=== PATIENT | female | born 1965 | race African-American/Black ===

== ENCOUNTER → 2016-06-21 | Outpatient (CLI) | payer OTHER ==
--- NOTE | 2016-06-21 14:02 | XR ---
EXAMINATION TYPE: XR chest 2V DATE OF EXAM: 06/21/2016 11:39 AM COMPARISON: 09/01/2014 HISTORY: 51-year-old female cough and headache, shortness of breath, congestion for 3 weeks. TECHNIQUE: Frontal and lateral views FINDINGS: The cardiomediastinal silhouette, aorta, and pulmonary vasculature are within normal limits. There is some strandy atelectasis in the lower lungs. Otherwise, lungs and pleural spaces are clear. IMPRESSION: No acute cardiopulmonary process.
== END | disposition home or self-care (01) ==
LOC: RADXRMAIN 10:55
PROVIDERS: ATTEND Physician Assistant Medical
DX: G44.83 Primary cough headache (principal)
CPT/HCPCS: 71020

== ENCOUNTER → 2016-08-27 | Outpatient (CLI) | payer OTHER ==
--- NOTE | 2016-08-27 12:12 | US ---
EXAMINATION TYPE: US transvaginal DATE OF EXAM: 08/27/2016 11:47 AM COMPARISON: NONE CLINICAL HISTORY: N95.0 Postmenopausal Bleeding. Symptoms x 1 month; prior endometrial ablation 7 ye ars ago; C Section x 1 TECHNIQUE: Transvaginal (TV) Date of LMP: NA with endometrial ablation EXAM MEASUREMENTS: Uterus: 5.5 x 3.6 x 2.5 cm Endometrial Stripe: right endometrial stripe = 0.2cm and left endometrial stripe = 0.1cm Right Ovary: 1.5 x 1.0 x 1.0 cm Left Ovary: 1.6 x 1.2 x 1.0m TECHNOLOGIST IMPRESSION: wnl 1. 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 2. 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 Right Ovary: simple cyst = 1.1 x 0.8 x 0.7cm 4. Left Ovary: small follicles 5. Bilateral Adnexa: wnl 6. Posterior cul-de-sac: wnl There is 9 mm oval heterogeneous hypoechoic lesion suspect small fibroid in the uterine fundus myomet rium. There is bicornuate type appearance of the uterus suspected. No suspicious endometrial thickeni ng is identified. No free fluid is seen in pelvic cul-de-sac. Within right ovary there is 1.1 cm simple small ovarian cyst noted. No concerning adnexal masses are identified. IMPRESSION: Probable 9 mm intramural fibroid. No suspicious endometrial thickening of arcuate or bico rnuate type uterus.
== END ==
LOC: RADUSWWP 11:12
PROVIDERS: ATTEND Obstetrics & Gynecology
DX: N95.0 Postmenopausal bleeding (principal)
CPT/HCPCS: 76830

== ENCOUNTER → 2017-02-26 | Outpatient (CLI) | payer OTHER ==
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
== END | disposition home or self-care (01) ==
LOC: RADMRIMAIN 06:03
PROVIDERS: ATTEND Psychiatry & Neurology Pain Medicine
DX: M99.73 Connective tissue and disc stenosis of intervertebral foramina of lumbar region (principal); M51.36 Other intervertebral disc degeneration, lumbar region; R93.7 Abnormal findings on diagnostic imaging of other parts of musculoskeletal system; Z88.5 Allergy status to narcotic agent; Z88.6 Allergy status to analgesic agent
CPT/HCPCS: 72148

== ENCOUNTER → 2017-03-04 | Outpatient (CLI) | payer OTHER ==
[2017-03-04 11:40] LABS: Basophils # (A) 0.1 k/uL (0-0.2); Basophils % (A) 1 %; CH 31.3; CHCM 31.4; Eosinophils # (A) 0.5 k/uL (0-0.7); Eosinophils % (A) 6 %; HCT 40.3 % (34.0-46.0); HGB 12.8 gm/dL (11.4-16.0); Luc # (Auto) 0.22; Luc % (Auto) 3; Lymphocytes # (A) 2.8 k/uL (1.0-4.8); Lymphocytes % (A) 35 %; MCH 31.8 pg (25.0-35.0); MCHC 31.8 g/dL (31.0-37.0); MCV 100.1 fL (80.0-100.0); Mean Platelet Volume 6.9; Monocytes # (A) 0.4 k/uL (0-1.0); Monocytes % (A) 5 %; Neutrophils # (A) 4.1 k/uL (1.3-7.7); Neutrophils % (A) 50 %; RBC 4.03 m/uL (3.80-5.40); RDW 13.2 % (11.5-15.5); WBC 8.1 k/uL (3.8-10.6); WBC (Perox) 7.99
== END | disposition home or self-care (01) ==
LOC: LABWHC1 10:52
PROVIDERS: ATTEND Physical Medicine & Rehabilitation
DX: R93.7 Abnormal findings on diagnostic imaging of other parts of musculoskeletal system (principal)
CPT/HCPCS: 36415; 85025

== ENCOUNTER → 2017-10-21 | Outpatient (CLI) | payer OTHER ==
--- NOTE | 2017-10-21 07:59 | MR ---
EXAMINATION TYPE: MR cervical spine wo con DATE OF EXAM: 10/21/2017 COMPARISON: NONE HISTORY: Neck pain, headaches, lt arm numbness TECHNIQUE: Multiplanar, multisequence images of the cervical spine were acquired. FINDINGS: Vertebral body heights and alignment are maintained of the cervical spine. Bone marrow signal is with in normal limits. Visualized portions of the posterior fossa are grossly unremarkable. Spinal cord si gnal is within normal limits of the visualized cervical spine. Paravertebral muscles are unremarkable without atrophy. C2-C3: There is a small right paracentral disc osteophyte complex without significant neural foramina l narrowing or spinal canal stenosis. Minimal uncovertebral hypertrophy is also seen at this level. C3-C4: There is mild facet arthropathy and uncovertebral hypertrophy creating mild left neural forami nal narrowing. Small central disc bulge slightly narrows the ventral subarachnoid space without impre ssion upon the ventral spinal cord or alteration of signal. This results in minimal spinal canal sten osis. C4-C5: There is a right paracentral small disc herniation narrowing the ventral subarachnoid space wi thout effacement creating minimal spinal canal stenosis. Minimal uncovertebral hypertrophy and facet arthropathy are seen without significant neural foraminal narrowing. C5-C6: There is a large broad-based disc bulge, facet arthropathy, and uncovertebral hypertrophy mode rately narrowing the left neural foramen and minimally narrowing the ventral subarachnoid space creat ing minimal spinal canal stenosis. Right neuroforamen is patent. C6-C7: There is a broad-based disc osteophyte complex, slightly left eccentric, that examination with uncovertebral hypertrophy and facet arthropathy creating moderate left neural foraminal narrowing. R ight neuroforamen is patent. No significant spinal canal stenosis. C7-T1: No evidence for degenerative disc disease. No disc bulge/herniation or protrusion. No Canal stenosis. Foramina are patent bilaterally. IMPRESSION: 1. Small right paracentral disc herniation at C4-C5 creating minimal spinal canal stenosis but withou t neural foraminal narrowing. 2. Multilevel moderate degenerative disc disease resulting in minimal spinal canal stenosis at C3-C4, C4-C5, and C5-C6. Variable degrees of neural foraminal narrowing are described above. The most signi ficant neural foraminal narrowing is seen on the left at C5-C6 and C6-C7 (moderate in degree).
== END | disposition home or self-care (01) ==
LOC: RADMRIMAIN 06:57
PROVIDERS: ATTEND Psychiatry & Neurology Neurology
DX: M99.71 Connective tissue and disc stenosis of intervertebral foramina of cervical region (principal); M48.02 Spinal stenosis, cervical region; M50.31 Other cervical disc degeneration, high cervical region; Z88.6 Allergy status to analgesic agent; Z88.8 Allergy status to other drugs, medicaments and biological substances
CPT/HCPCS: 72141

== ENCOUNTER → 2018-01-28 | Outpatient (CLI) | payer OTHER ==
[2018-01-28 08:41] LABS: Basophils % (A) 0 %; Eosinophils # (A) 0.1 k/uL (0-0.7); Eosinophils % (A) 0 %; HCT 43.4 % (34.0-46.0); HGB 13.2 gm/dL (11.4-16.0); Lymphocytes # (A) 1.9 k/uL (1.0-4.8); Lymphocytes % (A) 12 %; MCH 29.9 pg (25.0-35.0); MCHC 30.5 g/dL (31.0-37.0); MCV 98.2 fL (80.0-100.0); Mean Platelet Volume 6.9; Monocytes # (A) 0.3 k/uL (0-1.0); Monocytes % (A) 2 %; Neutrophils # (A) 13.3 k/uL (1.3-7.7); Neutrophils % (A) 85 %; Platelet Count 448 k/uL (150-450); RBC 4.42 m/uL (3.80-5.40); RDW 13.5 % (11.5-15.5); WBC 15.7 k/uL (3.8-10.6)
== END | disposition home or self-care (01) ==
LOC: LABWHC1 07:55
PROVIDERS: ATTEND Nurse Practitioner
DX: Z00.01 Encounter for general adult medical examination with abnormal findings (principal); M25.561 Pain in right knee
CPT/HCPCS: 36415; 85025

== ENCOUNTER → 2018-03-19 | Outpatient (CLI) | payer OTHER | END | disposition home or self-care (01) | LOC: LABWHC1 07:02 | PROVIDERS: ATTEND Nurse Practitioner | DX: M25.551 Pain in right hip (principal) | CPT/HCPCS: 36415; 83655 ==

== ENCOUNTER → 2019-01-26 | Outpatient (CLI) | payer OTHER ==
[2019-01-26 12:50] LABS: Basophils # (A) 0.2 k/uL (0-0.2); Basophils % (A) 2 %; Eosinophils # (A) 0.4 k/uL (0-0.7); Eosinophils % (A) 5 %; HCT 40.8 % (34.0-46.0); HGB 13.3 gm/dL (11.4-16.0); Lymphocytes % (A) 34 %; MCH 31.6 pg (25.0-35.0); MCHC 32.6 g/dL (31.0-37.0); Mean Platelet Volume 7.2; Monocytes # (A) 0.4 k/uL (0-1.0); Monocytes % (A) 4 %; Neutrophils # (A) 4.6 k/uL (1.3-7.7); Neutrophils % (A) 53 %; Platelet Count 414 k/uL (150-450); RBC 4.21 m/uL (3.80-5.40); WBC 8.7 k/uL (3.8-10.6)
== END | disposition home or self-care (01) ==
LOC: LABWHC1 11:41
PROVIDERS: ATTEND Surgery
DX: Z01.812 Encounter for preprocedural laboratory examination (principal); K43.2 Incisional hernia without obstruction or gangrene
CPT/HCPCS: 36415; 85025; 93005

== ENCOUNTER 2019-02-10 05:45 | Observation (INO) | payer OTHER ==
[~2019-02-10 05:45] MED LIST: HEPARIN SODIUM,PORCINE 5,000 UNIT/ML 1 ML VIAL SQ ONE; HYDROmorphone 0.5 MG/0.5 ML SYRINGE IVP PRN; ONDANSETRON 4 MG/2 ML VIAL IVP PRN
[2019-02-10] MEDS ORDERED: LIDOCAINE 1% 20 ML VIAL (10MG/ML) FOR IV START INTRADERMA ONE (06:39)
[2019-02-10] MEDS: LACTATED RINGERS 1,000 ML IV SCH ×3 (06:39→11:20)
[2019-02-10] MEDS ORDERED: DEXAMETHASONE SOD PHOSPHATE 10 MG/ML 1 ML VIAL IV ONE (06:50)
[2019-02-10] MEDS ORDERED: ATENOLOL 25 MG TAB PO STA (07:09)
[2019-02-10] MEDS ORDERED: MIDAZOLAM (PF) 2 MG/2 ML VIAL IV ONE ×2 (07:20→07:25)
[2019-02-10] MEDS: fentaNYL (PF) 50 MCG/ML 2 ML AMP IV ONE ×4 (07:20→09:41)
--- NOTE | 2019-02-10 07:37 | P.ANPRN ---
Procedure Note - Anesthesia - Nerve Block Performed Bilateral Transversus Abdominis Single Time Out Performed: Yes Date of Procedure: 02/10/19 Procedure Start Time: : Procedure Stop Time: : Location of Patient Procedure: PreOp Indication: Acute Post-Operative Pain, Requested by Surgeon Sedation Type: Sedate with meaningful contact maintained Preparation: Sterile Prep Position: Supine Catheter: None Needle Types: Pajunk Needle Gauge: 21 Ultrasound used to visualize needle placement: Yes Ultrasound used to observe medication spread: Yes Injectate: 0.5% Ropivacaine (see comment for volume) (30cc + dexamethasone 4mg (split equally b/w both sides)) Blood Aspirated: No Pain Paresthesia on Injection Noted: No Resistance on Injection: Normal Image Stored and Saved: Yes Events: Uneventful and Well Tolerated
[2019-02-10] MEDS ORDERED: PROPOFOL 10 MG/ML 20 ML VIAL IV ONE (07:41)
[2019-02-10] MEDS ORDERED: NEOSTIGMINE 1 MG/ML 10 ML VIAL ONE (07:41)
[2019-02-10] MEDS ORDERED: MIDAZOLAM 2 MG/2 ML VIAL ONE (07:41)
[2019-02-10] MEDS ORDERED: LABETALOL 5 MG/ML VIAL MDV ONE (07:41)
[2019-02-10] MEDS ORDERED: GLYCOPYRROLATE 0.2 MG/ML 2 ML VIAL ONE (07:41)
[2019-02-10] MEDS ORDERED: ROCURONIUM BROMIDE 10 MG/ML 10 ML VIAL IV ONE (07:41)
[2019-02-10] MEDS ORDERED: fentaNYL (PF) 50 MCG/ML 2 ML AMP ONE (07:41)
[2019-02-10] MEDS ORDERED: DEXAMETHASONE SOD PHOSPHATE 4 MG/ML 1 ML VIAL ONE (07:41)
[2019-02-10] MEDS ORDERED: PHENYLEPHRINE-0.9% NACL SYG 1 MG/10 ML SYRINGE ONE (07:41)
[2019-02-10] MEDS ORDERED: ROPIVACAINE 5 MG/ML 30 ML VIAL ONE (07:41)
[2019-02-10] MEDS ORDERED: ALBUTEROL INHALER 60 PUFF/8 GM INHALER INHALATION ONE (07:41)
--- NOTE | 2019-02-10 07:48 | P.GSHP ---
History of Present Illness H&P Date: 02/10/19 Chief Complaint: Incisional hernia This a 53-year-old female who presents today for laparoscopic robotic repair of incisional hernia. Patient has developed an incisional hernia near her umbilicus. Past Medical History Past Medical History: Hyperlipidemia, Hypertension History of Any Multi-Drug Resistant Organisms: None Reported Past Surgical History: Orthopedic Surgery Additional Past Surgical History / Comment(s): breast,bilateral hips, uterine ablation Past Anesthesia/Blood Transfusion Reactions: No Reported Reaction Past Drug Use History: None Reported - Past Family History Sister(s) Family Medical History: Cancer, Deep Vein Thrombosis (DVT), Pulmonary Embolus Additional Family Medical History / Comment(s): 1-lung, breast. 2 blood cancer. 3- cancer Medications and Allergies Home Medications Medication Instructions Recorded Confirmed Type Albuterol Inhaler [Ventolin Hfa 1 - 2 puff INHALATION RT-Q6H PRN 01/29/19 02/10/19 History Inhaler] Atenolol [Tenormin] 25 mg PO DAILY 01/29/19 02/10/19 History Cholecalciferol [Vitamin D3 (25 2,000 unit PO DAILY 01/29/19 02/10/19 History Mcg = 1000 Iu)] Furosemide [Lasix] 20 mg PO DAILY 01/29/19 02/10/19 History Gabapentin [Neurontin] 400 mg PO TID 01/29/19 02/10/19 History HYDROcodone/APAP 10-325MG [[place] 1 tab PO Q8H PRN 01/29/19 02/10/19 History 10-325] Loratadine [Claritin] 10 mg PO DAILY 01/29/19 02/10/19 History Meloxicam 15 mg PO DAILY 01/29/19 02/10/19 History Methocarbamol [Robaxin] 500 mg PO TID 01/29/19 02/10/19 History Mirtazapine [Remeron] 30 mg PO HS 01/29/19 02/10/19 History Montelukast [Singulair] 10 mg PO DAILY 01/29/19 02/10/19 History Pravastatin Sodium [Pravachol] 40 mg PO DAILY 01/29/19 02/10/19 History Prazosin [Minipress] 1 mg PO HS 01/29/19 02/10/19 History QUEtiapine FUMARATE [SEROquel] 300 mg PO HS 01/29/19 02/10/19 History Sertraline [Zoloft] 200 mg PO DAILY 01/29/19 02/10/19 History amLODIPine [Norvasc] 5 mg PO DAILY 01/29/19 02/10/19 History busPIRone HCL [Buspar] 30 mg PO BID 01/29/19 02/10/19 History Allergies Allergy/AdvReac Type Severity Reaction Status Date / Time aspirin AdvReac Anaphylaxis Verified 02/10/19 06:17 ibuprofen AdvReac Cough Verified 02/10/19 06:17 propoxyphene napsylate AdvReac Anaphylaxis Verified 02/10/19 06:17 [From Yissel-N] Surgical - Exam Vital Signs Temp Pulse Resp BP Pulse Ox 98.1 F 67 16 113/73 97 02/10/19 06:14 02/10/19 06:14 02/10/19 06:14 02/10/19 06:14 02/10/19 06:14 - General well developed, well nourished, no distress - Eyes PERRL - ENT normal pinna - Neck no masses - Respiratory normal expansion - Cardiovascular Rhythm: regular - Abdomen Abdomen: soft, non tender Hernia: incisional (3 cm incision hernia) Assessment and Plan Assessment: Incisional hernia. We'll perform laparoscopic robotic-assisted repair.
[2019-02-10] MEDS ORDERED: BUPIVACAIN-EPI 0.25%-1:200,000 30 ML VIAL SQ ONE (08:08)
[2019-02-10] MEDS ORDERED: LACTATED RINGERS 1,000 ML IV ONE ×2 (08:12→09:27)
[2019-02-10] MEDS ORDERED: traMADol 50 MG TAB PO PRN (09:27)
[2019-02-10] MEDS ORDERED: NALOXONE 0.4 MG/ML 1 ML VIAL IV PRN (09:27)
[2019-02-10] MEDS ORDERED: ONDANSETRON 4 MG/2 ML VIAL IVP PRN (09:27)
--- NOTE | 2019-02-10 09:30 | P.OP ---
Date of Procedure: 02/10/19 Preoperative Diagnosis: Incisional hernia Postoperative Diagnosis: Incisional hernia Procedure(s) Performed: Laparoscopic robotic-assisted repair of incisional hernia Partial omentectomy Anesthesia: ELSA Surgeon: Nelson Ruelas Estimated Blood Loss (ml): 5 Pathology: other (Omentum) Description of Procedure: The patient was placed on the operating table in the supine position. He received general anesthesia. His abdomen was prepped and draped usual fashion. Using a 5 mm optical trocar under direct visualization the peritoneal cavity was entered in the left upper quadrant. The abdomen was then insufflated. The laparoscope was placed back into the perineal cavity. Next a 8 mm robotic trocar was placed in the left lower quadrant and a 12 mm robotic trocar was placed in the left lateral position. The original 5 mm trocar was exchanged for a 8 mm robotic trocar. The patient's placed in the left side up position. And the patient was docked to the robot. The incisional hernia was visualized. Using hook cautery the peritoneum over the incisional hernia was excised. The incarcerated omentum was dissected free and sent to pathology. The fascial opening was repaired using 0V LOC suture. Next a piece of 11 cm round ventral light ST mesh was placed into the. Cavity and secured with 2 OV lock suture. The patient was undocked the robot. The needles were retrieved. The fascia of the 12 mm trocar site was closed with 0 Ethibond suture. Skin was closed interrupted 3-0 Monocryl suture. Dermabond dressings was applied. Patient tolerated procedure well and was sent to recovery room stable condition.
[2019-02-10] MEDS ORDERED: SODIUM CHLORIDE 0.9% 1,000 ML IV ONE ×2 (09:49)
[2019-02-10] MEDS: MEPERIDINE 50 MG/ML SYRINGE IVP ONE ×2 (10:03→10:14)
[2019-02-10 10:40] VITALS: BMI 35.5
--- NOTE | 2019-02-10 11:57 | P.CONS ---
History of Present Illness - History of Present Illness This is a pleasant 53 years old female with past medical history of hyperlipi demia, hypertension, she was admitted by the surgical team for elective laparoscopic repair of her incisional hernia. She is postop day #0. Patient Bed comfortable. She denies chest pain or dyspnea. No abdominal pain. No other complaints. Vitas looks stable. She is on Lovenox for DVT prophylaxis and she got antibiotics prior to surgery. Currently on Ringer lactate at 20 L/h. And she is on symptomatic treatment. Patient was in significant pain at the surgical site and she could not contribute much to the history. However she confirmed to me or her home medications. Review of Systems CONSTITUTIONAL: No fever, no malaise, no fatigue. HEENT: No recent visual problems or hearing problems. Denied any sore throat. CARDIOVASCULAR: No orthopnea, PND, no palpitations, no syncope. PULMONARY: No shortness of breath, no cough, no hemoptysis. GASTROINTESTINAL: No diarrhea, no nausea, no vomiting, no abdominal pain. Normoactive bowel sounds. NEUROLOGICAL: No headaches, no weakness, no numbness. HEMATOLOGICAL: Denies any bleeding or petechiae. GENITOURINARY: Denies any burning micturition, frequency, or urgency. MUSCULOSKELETAL/RHEUMATOLOGICAL: Denies any joint pain, swelling, or any muscle pain. ENDOCRINE: Denies any polyuria or polydipsia. Past Medical History Past Medical History: Hyperlipidemia, Hypertension History of Any Multi-Drug Resistant Organisms: None Reported Past Surgical History: Orthopedic Surgery Additional Past Surgical History / Comment(s): breast,bilateral hips, uterine ablation Past Anesthesia/Blood Transfusion Reactions: No Reported Reaction Past Psychological History: Depression Smoking Status: Current every day smoker Past Alcohol Use History: None Reported Additional Past Alcohol Use History / Comment(s): smoker for 20 years 1/2ppd Past Drug Use History: None Reported - Past Family History Sister(s) Family Medical History: Cancer, Deep Vein Thrombosis (DVT), Pulmonary Embolus Additional Family Medical History / Comment(s): 1-lung, breast. 2 blood cancer. 3- cancer Medications and Allergies Home Medications Medication Instructions Recorded Confirmed Type Albuterol Inhaler [Ventolin Hfa 1 - 2 puff INHALATION RT-Q6H PRN 01/29/19 02/10/19 History Inhaler] Atenolol [Tenormin] 25 mg PO DAILY 01/29/19 02/10/19 History Cholecalciferol [Vitamin D3 (25 2,000 unit PO DAILY 01/29/19 02/10/19 History Mcg = 1000 Iu)] Furosemide [Lasix] 20 mg PO DAILY 01/29/19 02/10/19 History Gabapentin [Neurontin] 400 mg PO TID 01/29/19 02/10/19 History HYDROcodone/APAP 10-325MG [[place] 1 tab PO Q8H PRN 01/29/19 02/10/19 History 10-325] Loratadine [Claritin] 10 mg PO DAILY 01/29/19 02/10/19 History Meloxicam 15 mg PO DAILY 01/29/19 02/10/19 History Methocarbamol [Robaxin] 500 mg PO TID 01/29/19 02/10/19 History Mirtazapine [Remeron] 30 mg PO HS 01/29/19 02/10/19 History Montelukast [Singulair] 10 mg PO DAILY 01/29/19 02/10/19 History Pravastatin Sodium [Pravachol] 40 mg PO DAILY 01/29/19 02/10/19 History Prazosin [Minipress] 1 mg PO HS 01/29/19 02/10/19 History QUEtiapine FUMARATE [SEROquel] 300 mg PO HS 01/29/19 02/10/19 History Sertraline [Zoloft] 200 mg PO DAILY 01/29/19 02/10/19 History amLODIPine [Norvasc] 5 mg PO DAILY 01/29/19 02/10/19 History busPIRone HCL [Buspar] 30 mg PO BID 01/29/19 02/10/19 History Allergies Allergy/AdvReac Type Severity Reaction Status Date / Time aspirin AdvReac Anaphylaxis Verified 02/10/19 06:17 ibuprofen AdvReac Cough Verified 02/10/19 06:17 propoxyphene napsylate AdvReac Anaphylaxis Verified 02/10/19 06:17 [From Mohit] Physical Exam Vitals: Vital Signs Temp Pulse Pulse Resp BP BP Pulse Ox 02/10/19 09:58 65 16 152/85 93 L 02/10/19 09:44 66 18 148/80 95 02/10/19 09:29 65 18 147/83 94 L 02/10/19 09:14 98 F 71 20 133/80 93 L 02/10/19 07:30 119/67 99 02/10/19 06:14 98.1 F 67 16 113/73 97 Intake and Output 02/09/19 02/10/19 02/10/19 22:59 06:59 14:59 Intake Total 750 1600 Output Total 10 Balance 750 1590 Intake: IV 750 1600 Output: Estimated Blood Loss 10 Other: # Voids 1 GENERAL: The patient is alert and oriented x3, not in any acute distress. Well developed, well nourished. HEENT: Pupils are round and equally reacting to light. EOMI. No scleral icterus. No conjunctival pallor. Normocephalic, atraumatic. No pharyngeal erythema. No thyromegaly. CARDIOVASCULAR: S1 and S2 present. No murmurs, rubs, or gallops. PULMONARY: Chest is clear to auscultation, no wheezing or crackles. ABDOMEN: Soft, nontender, nondistended, normoactive bowel sounds. No palpable organomegaly. MUSCULOSKELETAL: No joint swelling or deformity. EXTREMITIES: No cyanosis, clubbing, or pedal edema. NEUROLOGICAL: Gross neurological examination did not reveal any focal deficits. SKIN: No rashes. Assessment and Plan Assessment: Status post laparoscopic repair of her incisional hernia Hyperlipidemia Hypertension History of depression/anxiety Plan: This is a pleasant 53 years old female who presented for elective incisional hernia repair. Continue with pain management.Labs and medication were reviewed.. Continue same treatment. Continue with symptomatic treatment. Resume home medication. Monitor lytes and vitals. DVT and GI prophylaxis. Further recommendations of the clinical course of the patient DVT prophylaxis: Subcutaneous Lovenox GI Prophylaxis: Pepcid Prognosis is guarded
[2019-02-10] MEDS: HYDROmorphone 0.5 MG/0.5 ML SYRINGE IVP PRN ×4 (12:18→20:58)
[2019-02-10] MEDS: METHOCARBAMOL 500 MG TAB PO SCH ×2 (15:20→20:57)
[2019-02-10] MEDS: GABAPENTIN 400 MG CAP PO SCH ×2 (15:20→20:56)
[2019-02-10] MEDS: busPIRone HCl 10 MG TAB PO SCH (20:56)
[2019-02-10] MEDS: FAMOTIDINE 20 MG/2 ML VIAL IV SCH (20:57)
[2019-02-10] MEDS ORDERED: MIRTAZAPINE 15 MG TAB PO SCH (21:00)
[2019-02-10] MEDS ORDERED: QUEtiapine 100 MG TAB PO SCH (21:00)
[2019-02-10] MEDS ORDERED: PRAZOSIN 1 MG CAP PO SCH (21:00)
[2019-02-11] MEDS: HYDROmorphone 0.5 MG/0.5 ML SYRINGE IVP PRN ×3 (00:36→10:00)
[2019-02-11 03:12] VITALS: RESP 16; TEMP 98.1
[2019-02-11] MEDS: LACTATED RINGERS 1,000 ML IV SCH (04:35)
[2019-02-11] MEDS: HYDROcodone/APAP 5-325MG 1 EACH TAB PO PRN ×2 (04:35→09:14)
[2019-02-11] MEDS: FAMOTIDINE 20 MG/2 ML VIAL IV SCH (07:04)
[2019-02-11 07:09] VITALS: BP 132/98; PULSE 66
[2019-02-11] MEDS: GABAPENTIN 400 MG CAP PO SCH (07:10)
[2019-02-11] MEDS: busPIRone HCl 10 MG TAB PO SCH (07:10)
[2019-02-11] MEDS: METHOCARBAMOL 500 MG TAB PO SCH (07:11)
[2019-02-11] MEDS ORDERED: CHOLECALCIFEROL 1,000 UNIT TAB PO SCH (09:00)
[2019-02-11] MEDS ORDERED: amLODIPine 5 MG TAB PO SCH (09:00)
[2019-02-11] MEDS ORDERED: MONTELUKAST 10 MG TAB PO SCH (09:00)
[2019-02-11] MEDS ORDERED: SERTRALINE 100 MG TAB PO SCH (09:00)
[2019-02-11] MEDS ORDERED: ENOXAPARIN 40 MG/0.4 ML SYRINGE SQ SCH (09:00)
[2019-02-11] MEDS ORDERED: ATENOLOL 25 MG TAB PO SCH (09:00)
[2019-02-11] MEDS ORDERED: PRAVASTATIN SODIUM 40 MG TAB PO SCH (09:00)
[2019-02-11] MEDS ORDERED: FUROSEMIDE 20 MG TAB PO SCH (09:00)
--- NOTE | 2019-02-11 11:00 | P.PN ---
Subjective This is a pleasant 53 years old female with past medical history of hyperlipidemia, hypertension, she was admitted by the surgical team for elective laparoscopic repair of her incisional hernia. She is postop day #0. Patient Bed comfortable. She denies chest pain or dyspnea. No abdominal pain. No other complaints. Vitas looks stable. She is on Lovenox for DVT prophylaxis and she got antibiotics prior to surgery. Currently on Ringer lactate at 20 L/h. And she is on symptomatic treatment. Patient was in significant pain at the surgical site and she could not contribute much to the history. However she confirmed to me or her home medications. 02/11/2019 Patient still complains from abdominal pain at the surgical site which is exp ected however is much better compared to yesterday. On abdominal examination has no hernia she has small ones which are healing, she has tenderness in the abdomen around this area. She is getting out of bed to chair. Patient is tolerating diet, she is passing gas but no bowel movement. No nausea vomiting. Objective - Vital Signs Vital signs: Vital Signs Temp 98.1 F 02/10/19 20:25 Pulse 66 02/11/19 07:00 Resp 16 02/11/19 07:00 BP 132/98 02/11/19 07:00 Pulse Ox 95 02/10/19 20:25 Intake & Output 02/10/19 02/11/19 02/11/19 18:59 06:59 18:59 Intake Total 1780 440 Output Total 10 Balance 1770 440 Intake: IV 1600 Intake, IV Titration 240 Amount Lactated Ringers 1,000 ml 240 @ 20 mls/hr IV .Q24H [facility] Rx#:[id number] Oral 180 200 Output: Estimated Blood Loss 10 Other: Voiding Method Toilet Toilet # Voids 3 1 - Exam GENERAL: The patient is alert and oriented x3, not in any acute distress. Well developed, well nourished. HEENT: Pupils are round and equally reacting to light. EOMI. No scleral icterus. No conjunctival pallor. Normocephalic, atraumatic. No pharyngeal erythema. No thyromegaly. CARDIOVASCULAR: S1 and S2 present. No murmurs, rubs, or gallops. PULMONARY: Chest is clear to auscultation, no wheezing or crackles. -ABDOMEN: Soft, tenderness and abdominal around the surgical sites which is expected, normoactive bowel sounds. No palpable organomegaly. Laparoscopic site wounds are closed and healing. Dressing is in a Place. MUSCULOSKELETAL: No joint swelling or deformity. EXTREMITIES: No cyanosis, clubbing, or pedal edema. NEUROLOGICAL: Gross neurological examination did not reveal any focal deficits. SKIN: No rashes. Assessment and Plan Assessment: Status post laparoscopic repair of her incisional hernia Hyperlipidemia Hypertension History of depression/anxiety Plan: This is a pleasant 53 years old female who presented for elective incisional her layla repair. Continue with pain management.Labs and medication were reviewed.. Continue same treatment. Continue with symptomatic treatment. Resume home medication. Monitor lytes and vitals. DVT and GI prophylaxis. Further recommendations of the clinical course of the patient DVT prophylaxis: Subcutaneous Lovenox GI Prophylaxis: Pepcid Prognosis is guarded
--- NOTE | 2019-02-11 14:04 | P.DS ---
Providers Date of admission: 02/11/19 04:50 Expected date of discharge: 02/11/19 Attending physician: Nelson Ruelas Consults: 02/10/19 09:27 Consult Physician Routine Consulting Provider: James López Consult Reason/Comments: Medical management Do you want consulting provider notified?: Yes Primary care physician: Ligia [facility] Hospital Course: 53-year-old female who underwent laparoscopic robotic-assisted repair of incisional hernia. Patient is doing well postoperatively. Her pain is tolerable. Tolerating diet. Denies nausea or vomiting. Vital signs have been stable. She is stable for discharge home today. Please see EMR for further hospital course details. No narcotics were prescribed at the time of discharge as patient is prescribed Milam 10 mg on an outpatient basis. Discharge diagnosis 1. Incisional hernia, status post laparoscopic robotic-assisted repair Nurse practitioner note has been reviewed by physician. Signing provider agrees with the documented findings, assessment, and plan of care. Patient Condition at Discharge: Stable Plan - Discharge Summary Discharge Rx Participant: No New Discharge Prescriptions: No Action Montelukast [Singulair] 10 mg PO DAILY Meloxicam 15 mg PO DAILY Loratadine [Claritin] 10 mg PO DAILY Methocarbamol [Robaxin] 500 mg PO TID HYDROcodone/APAP 10-325MG [Mil[place] 10-325] 1 tab PO Q8H PRN PRN Reason: Pain Gabapentin [Neurontin] 400 mg PO TID Sertraline [Zoloft] 200 mg PO DAILY QUEtiapine FUMARATE [SEROquel] 300 mg PO HS Prazosin [Minipress] 1 mg PO HS Mirtazapine [Remeron] 30 mg PO HS Cholecalciferol [Vitamin D3 (25 Mcg = 1000 Iu)] 2,000 unit PO DAILY busPIRone HCL [Buspar] 30 mg PO BID Pravastatin Sodium [Pravachol] 40 mg PO DAILY Furosemide [Lasix] 20 mg PO DAILY Atenolol [Tenormin] 25 mg PO DAILY amLODIPine [Norvasc] 5 mg PO DAILY Albuterol Inhaler [Ventolin Hfa Inhaler] 1 - 2 puff INHALATION RT-Q6H PRN PRN Reason: Dyspnea Discharge Medication List Albuterol Inhaler [Ventolin Hfa Inhaler] 1 - 2 puff INHALATION RT-Q6H PRN 01/29/19 [History] Atenolol [Tenormin] 25 mg PO DAILY 01/29/19 [History] Cholecalciferol [Vitamin D3 (25 Mcg = 1000 Iu)] 2,000 unit PO DAILY 01/29/19 [History] Furosemide [Lasix] 20 mg PO DAILY 01/29/19 [History] Gabapentin [Neurontin] 400 mg PO TID 01/29/19 [History] HYDROcodone/APAP 10-325MG [[place] 10-325] 1 tab PO Q8H PRN 01/29/19 [History] Loratadine [Claritin] 10 mg PO DAILY 01/29/19 [History] Meloxicam 15 mg PO DAILY 01/29/19 [History] Methocarbamol [Robaxin] 500 mg PO TID 01/29/19 [History] Mirtazapine [Remeron] 30 mg PO HS 01/29/19 [History] Montelukast [Singulair] 10 mg PO DAILY 01/29/19 [History] Pravastatin Sodium [Pravachol] 40 mg PO DAILY 01/29/19 [History] Prazosin [Minipress] 1 mg PO HS 01/29/19 [History] QUEtiapine FUMARATE [SEROquel] 300 mg PO HS 01/29/19 [History] Sertraline [Zoloft] 200 mg PO DAILY 01/29/19 [History] amLODIPine [Norvasc] 5 mg PO DAILY 01/29/19 [History] busPIRone HCL [Buspar] 30 mg PO BID 01/29/19 [History] Follow up Appointment(s)/Referral(s): Ligia Ellison NPC [Primary Care Provider] - 1 Week (unable to contact [facility], please call back for a follow-up in 1 week) Nelson Ruelas MD [STAFF PHYSICIAN] - 02/19/19 2:40 pm Patient Instructions/Handouts: Incisional Hernia (DC) Activity/Diet/Wound Care/Special Instructions: No driving while taking Milam No lifting over 10 pounds You may shower. No soaking or tub baths Very light activity until you are reevaluated at your follow up appointment with your surgeon
== END 2019-02-11 13:35 ==
LOC: OR 05:45 → 4SSUR 09:05 → OR 02-11 04:50
PROVIDERS: ADMIT Surgery; ATTEND Surgery
DX: K43.2 Incisional hernia without obstruction or gangrene (principal); I10 Essential (primary) hypertension; E78.5 Hyperlipidemia, unspecified; F41.9 Anxiety disorder, unspecified; F32.9 Major depressive disorder, single episode, unspecified; J44.9 Chronic obstructive pulmonary disease, unspecified; F17.210 Nicotine dependence, cigarettes, uncomplicated; Z79.899 Other long term (current) drug therapy; Z79.1 Long term (current) use of non-steroidal anti-inflammatories (NSAID); Z88.6 Allergy status to analgesic agent; Z88.5 Allergy status to narcotic agent; Z88.8 Allergy status to other drugs, medicaments and biological substances; Z80.9 Family history of malignant neoplasm, unspecified; Z83.2 Family history of diseases of the blood and blood-forming organs and certain disorders involving the immune mechanism; Z80.7 Family history of other malignant neoplasms of lymphoid, hematopoietic and related tissues
CPT/HCPCS: 49655; S2900; 36415; 64488; 86850; 86900; 86901; 88305

== ENCOUNTER 2019-03-07 10:36 | Emergency (ER) | payer OTHER ==
[2019-03-07 10:42] VITALS: TEMP 97.8
[2019-03-07] MEDS ORDERED: MORPHINE SULFATE 4 MG/ML SYRINGE IVP STA ×2 (10:54→12:05)
--- NOTE | 2019-03-07 10:55 | ED ---
General Adult HPI - General Chief complaint: Abdominal Pain Stated complaint: POST OP PAIN, ABDOMINAL Time Seen by Provider: 03/07/19 10:44 Source: patient, RN notes reviewed Mode of arrival: ambulatory Limitations: no limitations - History of Present Illness Initial comments: Alberta is a 53-year-old female with a past medical history of hyperlipidemia hy pertension, and laparoscopic umbilical hernia surgery on 02/11/2019 presents for a chief complaint of abdominal pain. Patient states she has had left upper abdominal pain since her surgery. States this seems to be getting worse. States she did speak with Dr. Ruelas about this and has been taking Motrin for the pain. States it seems to be spreading. States pain is worse with movement and feels like a pressure. Denies any dysuria. Denies any fevers or chills. Denies any lower abdominal pain. Denies any pain over the incision repair site. Patient has no other complaints at this time including shortness of breath, chest pain, nausea or vomiting, headache, or visual changes. - Related Data Home Medications Medication Instructions Recorded Confirmed Albuterol Inhaler [Ventolin Hfa 1 - 2 puff INHALATION RT-Q6H PRN 01/29/19 03/07/19 Inhaler] Atenolol [Tenormin] 25 mg PO DAILY 01/29/19 03/07/19 Cholecalciferol [Vitamin D3 (25 2,000 unit PO DAILY 01/29/19 03/07/19 Mcg = 1000 Iu)] Furosemide [Lasix] 20 mg PO DAILY 01/29/19 03/07/19 Gabapentin [Neurontin] 400 mg PO TID 01/29/19 03/07/19 HYDROcodone/APAP 10-325MG [[place] 1 tab PO Q8H PRN 01/29/19 03/07/19 10-325] Loratadine [Claritin] 10 mg PO DAILY 01/29/19 03/07/19 Meloxicam 15 mg PO DAILY 01/29/19 03/07/19 Methocarbamol [Robaxin] 500 mg PO TID 01/29/19 03/07/19 Mirtazapine [Remeron] 30 mg PO HS 01/29/19 03/07/19 Montelukast [Singulair] 10 mg PO DAILY 01/29/19 03/07/19 Pravastatin Sodium [Pravachol] 40 mg PO DAILY 01/29/19 03/07/19 Prazosin [Minipress] 1 mg PO HS 01/29/19 03/07/19 QUEtiapine FUMARATE [SEROquel] 300 mg PO HS 01/29/19 03/07/19 Sertraline [Zoloft] 200 mg PO DAILY 01/29/19 03/07/19 amLODIPine [Norvasc] 5 mg PO DAILY 01/29/19 03/07/19 busPIRone HCL [Buspar] 30 mg PO BID 01/29/19 03/07/19 Allergies Allergy/AdvReac Type Severity Reaction Status Date / Time aspirin AdvReac Anaphylaxis Verified 03/07/19 10:51 ibuprofen AdvReac Cough Verified 03/07/19 10:51 propoxyphene napsylate AdvReac Anaphylaxis Verified 03/07/19 10:51 [From [facility]] Review of Systems ROS Statement: Those systems with pertinent positive or pertinent negative responses have been documented in the HPI. ROS Other: All systems not noted in ROS Statement are negative. Past Medical History Past Medical History: Hyperlipidemia, Hypertension History of Any Multi-Drug Resistant Organisms: None Reported Past Surgical History: Hernia Repair, Orthopedic Surgery Additional Past Surgical History / Comment(s): breast,bilateral hips, uterine ablation Past Psychological History: Depression Smoking Status: Current every day smoker Past Alcohol Use History: None Reported Past Drug Use History: Marijuana General Exam Limitations: no limitations General appearance: alert, in no apparent distress Head exam: Present: atraumatic, normocephalic, normal inspection Eye exam: Present: normal appearance, PERRL, EOMI. Absent: scleral icterus, conjunctival injection, periorbital swelling ENT exam: Present: normal exam, mucous membranes moist Neck exam: Present: normal inspection, full ROM. Absent: tenderness, meningismus Respiratory exam: Present: normal lung sounds bilaterally. Absent: respiratory distress, wheezes, rales, rhonchi, stridor Cardiovascular Exam: Present: regular rate, normal rhythm, normal heart sounds. Absent: systolic murmur, diastolic murmur, rubs, gallop, clicks GI/Abdominal exam: Present: soft, tenderness (Tenderness to the left upper quadrant. No lower abdominal tenderness or right upper quadrant tenderness.), normal bowel sounds. Absent: distended, guarding, rebound, rigid Neurological exam: Present: alert Psychiatric exam: Present: normal affect, normal mood Course Vital Signs 03/07/19 03/07/19 10:40 12:25 Temperature 97.8 F Pulse Rate 65 87 Respiratory 18 18 Rate Blood Pressure 123/78 122/74 O2 Sat by Pulse 99 Oximetry Medical Decision Making - Medical Decision Making 53-year-old female presents for left upper quadrant pain after laparoscopic umbilical hernia repair on 02/11/2019. States the pain has been evident since her surgery. States she saw her surgeon who recommended Motrin. States the pain is not resolving so she came to the emergency department. Denies nausea vomiting diarrhea. Denies fevers or chills. Denies any lower or right-sided abdominal pain. On exam patient does have tenderness to the left upper quadrant. No tenderness to the umbilical hernia site. Vitals are stable. CBC and CMP are unremarkable. Urine is negative for evidence of infection. CT abdomen and pelvis showed a. Umbilical hernia containing high density fluid which may represent blood. He does not wear patient's pain is and is likely normal finding for postop. Local hernia repair. There is also small right pleural effusion. Denies chest pain or shortness of breath. Uncomplicated diverticular change noted on CT. At this time patient was given pain medications and is feeling better. Recommended that she follow up with Dr. Ruelas as soon as possible. Recommended she return here if she has worsening symptoms. I discussed this case with attending Dr. Mccoy who agrees with this assessment and treatment plan. - Lab Data Result diagrams: 03/07/19 11:00 03/07/19 11:00 Lab Results 03/07/19 03/07/19 03/07/19 Range/Units 11:00 11:00 11:00 WBC 8.6 (3.8-10.6) k/uL RBC 4.23 (3.80-5.40) m/uL Hgb 13.4 (11.4-16.0) gm/dL Hct 39.2 (34.0-46.0) % MCV 92.6 (80.0-100.0) fL MCH 31.7 (25.0-35.0) pg MCHC 34.2 (31.0-37.0) g/dL RDW 13.1 (11.5-15.5) % Plt Count 405 (150-450) k/uL Neutrophils % 40 % Lymphocytes % 39 % Monocytes % 5 % Eosinophils % 11 % Basophils % 2 % Neutrophils # 3.5 (1.3-7.7) k/uL Lymphocytes # 3.4 (1.0-4.8) k/uL Monocytes # 0.4 (0-1.0) k/uL Eosinophils # 1.0 H (0-0.7) k/uL Basophils # 0.2 (0-0.2) k/uL Sodium 137 (137-145) mmol/L Potassium 5.0 (3.5-5.1) mmol/L Chloride 106 (98-107) mmol/L Carbon Dioxide 20 L (22-30) mmol/L Anion Gap 11 mmol/L BUN 15 (7-17) mg/dL Creatinine 0.76 (0.52-1.04) mg/dL Est GFR (CKD-EPI)AfAm >90 (>60 ml/min/1.73 sqM) Est GFR (CKD-EPI)NonAf 90 (>60 ml/min/1.73 sqM) Glucose 86 (74-99) mg/dL Calcium 10.2 (8.4-10.2) mg/dL Total Bilirubin 0.4 (0.2-1.3) mg/dL AST 22 (14-36) U/L ALT 10 (9-52) U/L Alkaline Phosphatase 93 (38-126) U/L Total Protein 7.6 (6.3-8.2) g/dL Albumin 4.2 (3.5-5.0) g/dL Amylase 57 (30-110) U/L Lipase 56 (23-300) U/L Urine Color Light Yellow Urine Appearance Clear (Clear) Urine pH 5.5 (5.0-8.0) Ur Specific [place] 1.005 (1.001-1.035) Urine Protein Negative (Negative) Urine Glucose (UA) Negative (Negative) Urine Ketones Negative (Negative) Urine Blood Negative (Negative) Urine Nitrite Negative (Negative) Urine Bilirubin Negative (Negative) Urine Urobilinogen <2.0 (<2.0) mg/dL Ur Leukocyte Esterase Negative (Negative) Disposition Clinical Impression: Abdominal pain Disposition: HOME SELF-CARE Condition: Good Instructions (If sedation given, give patient instructions): Abdominal Pain (ED) Additional Instructions: Please follow up with surgeon in 1-2 days. Please return here to the emergency department if you have any worsening symptoms. Is patient prescribed a controlled substance at d/c from ED?: No Referrals: [facility] [Primary Care Provider] - 1-2 days Nelson Ruelas MD [STAFF PHYSICIAN] - 1-2 days Time of Disposition: 13:02
[2019-03-07 11:50] LABS: Basophils # (A) 0.2 k/uL (0-0.2); Basophils % (A) 2 %; Eosinophils % (A) 11 %; HCT 39.2 % (34.0-46.0); HGB 13.4 gm/dL (11.4-16.0); Lymphocytes # (A) 3.4 k/uL (1.0-4.8); Lymphocytes % (A) 39 %; MCH 31.7 pg (25.0-35.0); MCHC 34.2 g/dL (31.0-37.0); MCV 92.6 fL (80.0-100.0); Mean Platelet Volume 6.1; Monocytes # (A) 0.4 k/uL (0-1.0); Monocytes % (A) 5 %; Neutrophils # (A) 3.5 k/uL (1.3-7.7); Neutrophils % (A) 40 %; Platelet Count 405 k/uL (150-450); RBC 4.23 m/uL (3.80-5.40); RDW 13.1 % (11.5-15.5); WBC 8.6 k/uL (3.8-10.6)
[2019-03-07 11:53] LABS: Appearance,Urine Clear (Clear); Bilirubin,Urine Negative (Negative); Blood,Urine Negative (Negative); Color,Urine Light Yellow; Glucose,Urine (UA) Negative (Negative); Ketones,Urine Negative (Negative); Leukocyte Esterase,Urine Negative (Negative); Nitrite,Urine Negative (Negative); PH, Urine 5.5 (5.0-8.0); Protein,Urine Negative (Negative); Specific Gravity,Urine 1.005 (1.001-1.035); Urobilinogen,Urine <2.0 mg/dL (<2.0)
[2019-03-07 11:57] LABS: ALT 10 U/L (9-52); AST 22 U/L (14-36); African American GFR (CKD) >90 (>60 ml/min/1.73 sqM); Albumin 4.2 g/dL (3.5-5.0); Alkaline Phosphatase 93 U/L (38-126); Amylase 57 U/L (30-110); Anion Gap 11 mmol/L; Blood Urea Nitrogen 15 mg/dL (7-17); Calcium 10.2 mg/dL (8.4-10.2); Carbon Dioxide 20 mmol/L (22-30); Chloride 106 mmol/L (98-107); Glucose 86 mg/dL (74-99); Sodium 137 mmol/L (137-145); Total Bilirubin 0.4 mg/dL (0.2-1.3); Total Protein 7.6 g/dL (6.3-8.2)
--- NOTE | 2019-03-07 12:34 | CT ---
EXAMINATION TYPE: CT abdomen pelvis w con DATE OF EXAM: 03/07/2019 REFERENCE: NONE HISTORY: abdominal pain LUQ, lap umb hernia repair 02/10 HISTORY: Post Op pain, LUQ CT DLP: 1286 mGy Automated exposure control for dose reduction was used. TECHNIQUE: Helical acquisition through the abdomen and pelvis was obtained following the oral ingesti on of without Oral Contrast and following intravenous administration of 100 mL of Isovue 300. The jarek a was reformatted in axial, coronal and sagittal projections. FINDINGS: There is a small right-sided pleural effusion. There is mild dependent atelectasis in the dependent portions of both lungs. The heart is minimally enlarged. There is no pericardial fluid iden tified. Within the abdomen, the liver, spleen and gallbladder are normal. Both adrenal glands are normal Both kidneys demonstrate function and appear morphologically normal. There are extrarenal pelves bila terally larger on the right than the left. Pancreas is unremarkable. There is no significant retroperitoneal, iliac or inguinal adenopathy. There are bilateral hip prostheses present. This is causing significant streak artifact within the pe lvis. Bladder is not well visualized. The uterus and ovaries are not well visualized. There are scattered diverticula in the sigmoid region without radiographic evidence of diverticulitis . The appendix is not visualized. Small bowel loops are normal. There is a periumbilical hernia containing some high density material which may represent blood. No free fluid and no free air is seen. No osseous lesion is seen. IMPRESSION: 1. PERIUMBILICAL HERNIA CONTAINING HIGH-DENSITY FLUID WHICH MAY REPRESENT BLOOD. 2. SMALL RIGHT PLEURAL EFFUSION. 3. UNCOMPLICATED DIVERTICULAR CHANGE INVOLVING THE SIGMOID COLON.
[2019-03-07 13:58] VITALS: BP 122/91; PULSE 68; RESP 16
== END 2019-03-07 13:58 | disposition home or self-care (01) ==
LOC: EC 10:36
DX: K57.30 Diverticulosis of large intestine without perforation or abscess without bleeding (principal); K42.9 Umbilical hernia without obstruction or gangrene; J90 Pleural effusion, not elsewhere classified; E78.5 Hyperlipidemia, unspecified; I10 Essential (primary) hypertension; F32.9 Major depressive disorder, single episode, unspecified; F17.200 Nicotine dependence, unspecified, uncomplicated; Z98.890 Other specified postprocedural states; Z79.1 Long term (current) use of non-steroidal anti-inflammatories (NSAID); Z79.899 Other long term (current) drug therapy; Z88.6 Allergy status to analgesic agent; Z88.5 Allergy status to narcotic agent
CPT/HCPCS: 36415; 80053; 82150; 83690; 85025; 81003; 74177; 99284; 96374; 96376; J2270; Q9967

== ENCOUNTER 2020-07-15 08:46 | Day surgery (SDC) | payer OTHER ==
[2020-07-13 17:14] VITALS: BMI 37.8
[~2020-07-15 08:46] MED LIST changes: -HEPARIN SODIUM,PORCINE 5,000 UNIT/ML 1 ML VIAL SQ ONE; -HYDROmorphone 0.5 MG/0.5 ML SYRINGE IVP PRN; +LACTATED RINGERS 1,000 ML IV SCH; -ONDANSETRON 4 MG/2 ML VIAL IVP PRN
[2020-07-15 10:12] VITALS: TEMP 96.7
[2020-07-15] MEDS ORDERED: LIDOCAINE 1% (10MG/ML) FOR IV START INTRADERMA ONE (10:16)
[2020-07-15] MEDS ORDERED: MIDAZOLAM 2 MG/2 ML VIAL IV ONE (10:17)
[2020-07-15] MEDS ORDERED: LIDOCAINE 1% INJ 10MG/ML (20 ML MDV) ONE (10:57)
[2020-07-15] MEDS ORDERED: PROPOFOL 10 MG/ML 20 ML VIAL IV ONE (10:57)
--- NOTE | 2020-07-15 11:13 | P.PCN ---
Date of Procedure: 07/15/20 Procedure(s) Performed: BRIEF HISTORY: Patient is a 55-year-old pleasant female scheduled for an elective colonoscopy as a part of screening for colorectal neoplasia. PROCEDURE PERFORMED: Colonoscopy snare polypectomy and biopsy. PREOPERATIVE DIAGNOSIS: Screening for colon cancer. IV sedation per Anesthesia. PROCEDURE: After informed consent was obtained, the patient, was brought into the endoscopy unit. IV sedation was administered by Anesthesia under continuous monitoring. Digital rectal examination was normal. Initially the Olympus CF-160 flexible video colonoscope was then inserted in the rectum, gradually advanced into the cecum without any difficulty. Careful examination was performed as the scope was gradually being withdrawn. Ileocecal valve and the appendiceal orifice were visualized and appeared normal. Prep was excellent. On the ileocecal valve there was a superficial ulceration noted which was biopsied. Terminal ileum appeared normal. Mucosa of the cecum, ascending colon, transverse colon, descending colon, sigmoid colon, and rectum appeared normal. In the proximal rectum there was a 5-6 minute a polyp that was removed by snare polypectomy. Retroflexion was performed in the rectum and no lesions were seen. The patient tolerated the procedure well. IMPRESSION: 6 mm proximal rectal polyp status post polypectomy Superficial ulceration on the ileocecal valve status post biopsy Terminal ileum appeared normal. RECOMMENDATIONS: Findings of this examination were discussed with the patient as well as a family. She was advised to follow with the biopsy results. If the biopsy shows an adenoma she can have a repeat colonoscopy in 5 years.
[2020-07-15 11:27] VITALS: RESP 16
[2020-07-15 11:31] VITALS: BP 127/82; PULSE 57
== END 2020-07-15 12:18 | disposition home or self-care (01) ==
LOC: ORWHC2ENDO 08:46
PROVIDERS: ATTEND Internal Medicine Gastroenterology
DX: Z12.11 Encounter for screening for malignant neoplasm of colon (principal); K52.89 Other specified noninfective gastroenteritis and colitis; K62.1 Rectal polyp; Z86.010 Personal history of colon polyps; I10 Essential (primary) hypertension; E78.5 Hyperlipidemia, unspecified; J44.9 Chronic obstructive pulmonary disease, unspecified; F17.200 Nicotine dependence, unspecified, uncomplicated; Z79.899 Other long term (current) drug therapy; Z88.6 Allergy status to analgesic agent; Z88.8 Allergy status to other drugs, medicaments and biological substances; Z88.5 Allergy status to narcotic agent
CPT/HCPCS: 88305; 45380; 45385; J2250; J2001; J2704

== ENCOUNTER 2024-01-16 11:08 | Emergency (ER) | payer OTHER ==
[~2024-01-16 11:08] MED LIST changes: -LACTATED RINGERS 1,000 ML IV SCH; +LIDOCAINE 1% INJ 10MG/ML (20 ML MDV) ONE
== END 2024-01-16 11:20 | disposition left against medical advice (07) ==
LOC: EC 11:08
CPT/HCPCS: 20610; 99282

== ENCOUNTER → 2024-02-18 | Outpatient (CLI) | payer OTHER ==
--- NOTE | 2024-02-18 13:19 | BD ---
EXAMINATION TYPE: Axial Bone Density DATE OF EXAM: 02/18/2024 CLINICAL HISTORY: 58 years old Female. ICD-10 CODE: M81.0 OSTEOPOROSIS Height: 61 Weight: 173.9 FRAX RISK QUESTIONS: Alcohol (3 or more units per day): no Family History (Parent hip fracture): no Glucocorticoids (More than 3mos): no (Ex: prednisone, prednisolone, methylprednisolone, dexamethasone, and hydrocortisone). History of Fracture in Adulthood: foot Secondary Osteoporosis: 1. Type 1 Diabetes: no 2. Hyperthyroidism: no 3. Menopause before 45: yes 4. Malnutrition: no 5. Chronic liver disease: no Rheumatoid Arthritis: no Current Tobacco Use: yes RISK FACTORS HISTORY OF: Hip Fracture (Right/Left): no Spine Fracture: no History of Wrist Fracture: no Surgery to Spine/Hip(right/left)/Wrist (right/left): Bilateral hip replacement When: 2009 and 2011 MEDICATIONS: Thyroid Medications: no Osteoporosis Medications: no EXAM MEASUREMENTS: Bone mineral densitometry was performed using the Xolve System. Bone mineral density as measured about the Lumbar spine is: ----- L1-L4(G/cm2): 1.091 T Score Values are as follows: ----- L1: 0.1 ----- L2: -0.8 ----- L3: -1.4 ----- L4: -0.9 ----- L1-L4: -0.7 Z Score Values are as follows: ----- L1: 0.1 ----- L2: -0.8 ----- L3: -1.4 ----- L4: -0.9 ----- L1-L4: -0.7 Baseline Study Bone mineral density about the L Wrist (g/cm2): 0.519 T Score values are as follows: -----Dist. R+U: -2.4 -----Prox. R+U: -1.9 -----Radius total: -2.6 Z Score values are as follows: -----Dist. R+U: -2.2 -----Prox. R+U: -1.7 -----Radius total: -2.5 baseline study FRAX%s: The graph provided illustrates a n/a% chance for a major osteoporotic fx and a % chance for t he hips probability for fx in 10 years time. IMPRESSION: Osteoporosis (T Score less than -2.5). There is increased fracture risk and therapy is usually indicated based on age. Re-Screen 1-2 years. NOTE: T-SCORE=SD OF THE YOUNG ADULT MEAN.
== END | disposition home or self-care (01) ==
LOC: RADBDWWP 12:39
PROVIDERS: ATTEND Psychologist Clinical
DX: M81.0 Age-related osteoporosis without current pathological fracture
CPT/HCPCS: 77080

== ENCOUNTER → 2024-02-27 | Outpatient (CLI) | payer OTHER ==
--- NOTE | 2024-03-08 12:32 | MM ---
Reason for Exam: Screening (asymptomatic). Last mammogram was performed 1 year(s) and 7 month(s) ago. Patient History: Menarche at age 8. First Full-Term at age 21. Left ovary removed at age 51. Right ovary removed at age 51. Hysterectomy at age 51. Postmenopausal. Benign Excisional Biopsy on the right side. 06/23/2010, Benign Excisional Biopsy on the right side. Maternal aunt had breast cancer, age 50. Maternal uncle had breast cancer, age 60. Sister had breast cancer, age 50. Sister had breast cancer, age 49. Risk Values: Yari 5 year model risk: 3.9%. NCI Lifetime model risk: 18.2%. Prior Study Comparison: 04/05/2015 Bilateral Screening Mammogram, [facility]. 04/12/2017 Bilateral Screening Mammogram, [facility]. 07/31/2022 Bilateral MG 3D screening mammo w/cad, [facility]. Tissue Density: There are scattered areas of fibroglandular density. Findings: Analyzed By CAD. The pattern is symmetrical. No significant interval change. Chronic nodularities within the left breast. No suspicious groups of microcalcifications, spiculated or lobular masses, architectural distortion or other secondary signs of malignancy are mammographically apparent. Overall Assessment: Benign, BI-RAD 2 Management: Screening Mammogram of both breasts in 1 year. A negative mammogram report should not preclude additional follow up of suspicious palpable abnormalities. Patient should continue monthly self breast exam. A clinical breast exam by your physician is recommended on an annual basis and results should be correlated with mammographic findings. Note on Yari scores and lifetime risk: 1. A Yari score greater than 3% is considered moderate risk. If this is the case, consider specialist referral to assess eligibility for a risk reducing agent. 2. If overall lifetime risk for the development of breast cancer is 20% or higher, the patient may qualify for future screening with alternating mammogram and breast MRI. [facility], , 03/08/2024 12:28 PM. Electronically signed and approved by: Kamar Bernard D.O. Radiologis
== END | disposition home or self-care (01) ==
LOC: RADMAMWWP 07:08
PROVIDERS: ATTEND Family Medicine
DX: Z12.31 Encounter for screening mammogram for malignant neoplasm of breast
CPT/HCPCS: 77067